=== PATIENT | male | born 1965 | race Caucasian/White ===

== ENCOUNTER 2017-01-01 08:27 | Day surgery (SDC) | payer OTHER, BC ==
[~2017-01-01] VITALS: Ht 177.8 cm; Wt 93.0 kg
[2017-01-01] VITALS (10 sets, daily range): BP systolic 99–135; BP diastolic 50–82; PULSE 50–69; TEMP 36.3–37.1; O2SAT 96–98; Ht 177.8 cm; Wt 93.0 kg
[~2017-01-01 08:27] MED LIST: CHOL100010 PO; LEVO25TA PO; SIMV20TA2 PO
--- NOTE | 2017-01-01 10:57 | DIAGNOSTIC IMAGING REPORT ---
MYELOGRAM,SUPER/INTER LUMBAR CLINICAL HISTORY: 51 years-old Male with back pain, ct myelogram lumbar. PROCEDURE: The risks, benefits, and alternatives to the procedure is discussed with the patient who voiced understanding. Written informed consent was obtained. The patient was placed prone on the fluoroscopy table. The lower back was prepped and draped in the usual sterile fashion. 1% lidocaine was used for local anesthesia. A 20-gauge spinal needle was inserted into the L3-L4 interlaminar space, and upon return of clear CSF, 12 mL of Isovue M 200 was injected into the thecal space. The patient tolerated the procedure well. There were no immediate complications. The patient was then transported to CT. Fluoroscopy time: 0.5 minutes IMPRESSION: Successful myelogram for CT. Please see the CT portion of the study for diagnostic information. The above report was generated using voice recognition software. It may contain grammatical, syntax or spelling errors. Electronically signed by: Reinaldo Elder M.D. 01/01/2017 10:55 AM Dictated Date/Time: 01/01/2017 10:48 AM
--- NOTE | 2017-01-01 11:25 | DIAGNOSTIC IMAGING REPORT ---
LUMBAR SPINE WITH CT DOSE: 805.67 mGy.cm CLINICAL HISTORY: 51 years-old Male with radicular left lower extremity pain presents for CT myelogram. TECHNIQUE: Multiple axial CT images of the lumbar spine were obtained with the use of intrathecal contrast. Coronal and sagittal reformats were generated from the axial data set and submitted for review. A dose lowering technique was utilized adhering to the principles of ALARA. COMPARISON: None. FINDINGS: There are 5 lumbar-type vertebral bodies segments present. The vertebral body heights appear well maintained. No evidence of acute fracture or subluxation is appreciated. 2.8 x 2.3 x 2.3 cm nonaggressive appearing hemangioma is present within the right mid aspect of the L2 vertebral body. There is moderate intervertebral disc space narrowing at L4-L5 with moderate to severe intervertebral disc space narrowing at L5-S1. Posterior spondylitic spurring with circumferential annular disc bulging is also present at these levels. There is been prior laminectomy with interbody rods and screw fixation at L3-L4. No evidence of hardware complication. Alignment is satisfactory. Cyst or extrarenal pelvis is seen near the left renal sinus which measures up to 4.4 x 3.6 cm, only partially imaged. Acute intra-abdominal or intrapelvic abnormality is identified. Conus medullaris terminates at T12-L1. T12-L1: No evidence of disc bulge or central canal stenosis is seen. The neural foramina appear patent bilaterally. L1-L2: Small circumferential annular disc bulge effaces the ventral thecal sac without central canal or foraminal narrowing. L2-L3: Small right foraminal broad-based protrusion is present causing mild right foraminal narrowing. Central canal and left foramen are patent. L3-L4: Needle tract at myelogram site noted. Prior laminectomy and interbody posterior fusion with associated moderate facet arthropathy. No central canal or foraminal narrowing is identified. L4-L5: Prior laminectomy. Moderate intervertebral disc space narrowing, posterior spondylitic spurring with annular fissure and a circumferential annular disc bulge. Moderate facet arthrosis is noted. There is effacement of the ventral thecal sac with moderate left and mild right foraminal narrowing. L5-S1: Moderate to severe intervertebral disc space narrowing with posterior spondylitic spurring and broad-based annular disc bulge is present in conjunction with moderate facet arthrosis. No significant central canal or foraminal narrowing is identified. IMPRESSION: 1. Prior laminectomy at L3-L4 and L4-L5 with posterior interbody kim and screw fixation at L3-L4. No evidence of hardware complication. Alignment is satisfactory. 2. Moderate intervertebral disc space narrowing at L4-L5 along with posterior spondylitic spurring, annular disc bulge and annular fissure is present with resultant moderate left and mild right foraminal narrowing. 3. Additional mild discogenic degenerative changes are seen as above. 4. Renal cyst versus extrarenal pelvis on the left is only partially imaged. The above report was generated using voice recognition software. It may contain grammatical, syntax or spelling errors. Electronically signed by: Reinaldo Elder M.D. 01/01/2017 11:24 AM Dictated Date/Time: 01/01/2017 11:07 AM
[2017-01-01] MEDS ORDERED: ACETAMINOPHEN 500 MG TAB PO PRN (11:45)
--- NOTE | 2017-01-01 11:46 | Discharge Instructions ---
Discharge Instructions Procedure Procedure Date: Jan 01, 2017. Reason for visit: Lumbar Spine Degenerative Joint Disease. Discharge Discharge Date: Jan 01, 2017. Discharge Diagnosis: Back pain. Status post lumbar puncture for myelogram. Instructions Activity Recommendations: 48 Hours of decreased exertion Return to School/Work: no limitations Recommended Home Diet: Resume Previous Diet Allergies Coded Allergies: No Known Allergies (Unverified , 01/01/17) Quita Villafana Recommendations: Call your doctor if: * Temperature above 101 degrees * Pain not relieved by pain medicine ordered * There is increased drainage or redness from any incision * You have any unanswered questions or concerns. Your Doctors Instructions noted above were prepared by provider Ambrose Elder. Patient Signature Section: Patient Instructions Signature Page Steve Castillo Patient (or Guardian) Signature/Date: I have read and understand the instructions given to me by my caregivers. Caregiver/RN/Doctor Signature/Date: The above-named patient and/or guardian has received patient instructions on this date. + Original Patient Signature Page (only) stays with chart. Please make copy for patient.
== END 2017-01-01 15:09 | disposition home or self-care (01) ==
LOC: C.ACU 08:27
PROVIDERS: ATTEND Orthopaedic Surgery Orthopaedic Surgery of the Spine
DX: M51.36 Other intervertebral disc degeneration, lumbar region (principal)